=== PATIENT | female | born 1955 | race Caucasian/White ===

== ENCOUNTER 2022-07-08 07:35 | Emergency (ER) | payer OTHER ==
[2022-07-08 07:46] VITALS: BP 147/80; PULSE 84; RESP 20; TEMP 98.2; BMI 31.1
[2022-07-08] MEDS ORDERED: ACETAMINOPHEN 500 MG TABLET (FP) PO ONE (08:40)
[2022-07-08] MEDS ORDERED: ACETAMINOPHEN 500 MG TABLET (FP) ONE (08:43)
== END 2022-07-08 09:29 | disposition home or self-care (01) ==
LOC: FER 07:35
PROC: 2W3CX1Z Immobilization of Right Lower Arm using Splint (ICD-10-PCS; principal; 2022-07-08)
DX: S62.306A Unspecified fracture of fifth metacarpal bone, right hand, initial encounter for closed fracture (principal); W01.0XXA Fall on same level from slipping, tripping and stumbling without subsequent striking against object, initial encounter
CPT/HCPCS: 73130-TC-RT-FY; 73502-TC-RT-FY; 99284-25